=== PATIENT | female | born 1950 | race African-American/Black ===

== ENCOUNTER 2021-03-13 13:28 | Observation (INO) ==
[2021-03-13] MEDS ORDERED: methylPREDNISolone 125 MG in 0.9 % Sodium Chloride 100 ML IVPB ONE (13:38)
[2021-03-13] MEDS ORDERED: methylPREDNISolone 125 MG/2 ML VIAL IVP ONE (13:50)
[2021-03-13 14:52] LABS: Basophils # 0.1 K/mcL (0.0-0.2); Basophils % 0.5 %; Eosinophils # 0.2 K/mcL (0.0-0.6); Eosinophils % 1.8 %; Hematocrit 41.4 % (35.3-44.9); Immature Granulocytes % 0.6 % (0-4); Lymphocytes # 2.2 K/mcL (0.6-4.6); Lymphocytes % 23.5 %; Mean Corpuscular HGB Conc 31.4 g/dL (31.6-35.5); Mean Corpuscular Hemoglobin 28.4 pg (28.0-33.3); Mean Corpuscular Volume 90.4 fL (83.0-100.0); Mean Platelet Volume 9.5 fL (9.4-12.4); Monocytes # 0.8 K/mcL (0.0-1.3); Monocytes % 8.1 %; Neutrophils # 6.1 K/mcL (1.6-8.9); Platelet Count 344 K/mcL (140-400); Red Blood Count 4.58 M/mcL (3.82-4.97); Red Cell Distribution Width 14.7 % (11.5-14.5); Segmented Neutrophils % 65.5 %; White Blood Count 9.3 K/mcL (4.3-11.1)
[2021-03-13 15:06] LABS: BUN/Creatinine Ratio 22 (6-26); Blood Urea Nitrogen 14 mg/dL (8-23); Calcium 9.4 mg/dL (8.6-10.3); Carbon Dioxide 28 mEq/L (23-29); Chloride 100 mEq/L (98-107); Glucose 89 mg/dL (70-105); Osmolality,Calculated 282 (280-300); Potassium 3.4 mEq/L (3.5-5.1); Sodium 136 mEq/L (136-145); eGFR For African Americans > 60 (> 60); eGFR For Non-African Americans > 60 (> 60)
[2021-03-13] MEDS ORDERED: Ondansetron 4 MG/2 ML VIAL IVP PRN (15:31)
[2021-03-13] MEDS ORDERED: EPINEPHrine 1 MG/ML VIAL IM ONE (15:32)
[2021-03-13] MEDS: *HR* Heparin 5,000 UNIT/ML VIAL SQ SCH (18:27)
[2021-03-14] MEDS: *HR* Heparin 5,000 UNIT/ML VIAL SQ SCH (05:45)
[2021-03-14 07:10] VITALS: BP 134/83; PULSE 78; TEMP 97.8; O2SAT 96
== END 2021-03-14 10:30 | disposition home or self-care (01) ==
LOC: EMEROOARM 13:28 → 3BNU 13:28 → SUATTDRO 15:33 → 3BNU 17:59
PROVIDERS: ADMIT Internal Medicine; ATTEND Registered Nurse

== ENCOUNTER 2022-02-23 10:45 | Observation (INO) ==
[2022-02-23] MEDS ORDERED: Famotidine 20 MG/2 ML VIAL IVP ONE (11:22)
[2022-02-23] MEDS ORDERED: Oxymetazoline Nasal SPRAY BOTTLE 15ML NS ONE (11:30)
[2022-02-23] MEDS ORDERED: Tetracaine/Benzocaine/Butamben 1 SPRAY AEROSOL MM ONE (11:30)
[2022-02-23] MEDS ORDERED: Ondansetron 4 MG/2 ML VIAL IVP ONE (11:49)
[2022-02-23 13:11] LABS: Basophils # 0.1 K/mcL (0.0-0.2); Basophils % 0.7 %; Eosinophils # 0.2 K/mcL (0.0-0.6); Eosinophils % 3.4 %; Hematocrit 40.9 % (35.3-44.9); Hemoglobin 13.5 g/dL (11.5-15.4); Immature Granulocytes % 0.3 % (0-4); Lymphocytes # 1.6 K/mcL (0.6-4.6); Lymphocytes % 21.9 %; Mean Corpuscular Hemoglobin 29.2 pg (28.0-33.3); Mean Corpuscular Volume 88.3 fL (83.0-100.0); Mean Platelet Volume 10.4 fL (9.4-12.4); Monocytes # 0.5 K/mcL (0.0-1.3); Monocytes % 7.2 %; Neutrophils # 4.7 K/mcL (1.6-8.9); Platelet Count 313 K/mcL (140-400); Red Blood Count 4.63 M/mcL (3.82-4.97); Red Cell Distribution Width 13.3 % (11.5-14.5); Segmented Neutrophils % 66.5 %; White Blood Count 7.1 K/mcL (4.3-11.1)
[2022-02-23 13:14] LABS: VBG HCO3 27 mEq/L (21-27); VBG PCO2 48 mmHg (41-51); VBG PH 7.37 pH Units (7.32-7.42); VBG PO2 92 mmHg (25-50)
[2022-02-23 13:43] LABS: BUN/Creatinine Ratio 28 (6-26); Blood Urea Nitrogen 19 mg/dL (8-23); Calcium 9.6 mg/dL (8.6-10.3); Carbon Dioxide 24 mEq/L (23-29); Chloride 101 mEq/L (98-107); Glucose 99 mg/dL (70-105); Osmolality,Calculated 282 (280-300); Potassium 4.2 mEq/L (3.5-5.1); Sodium 135 mEq/L (136-145)
[2022-02-23 13:46] LABS: Troponin I < 0.03 ng/mL (< 0.04)
[2022-02-23] MEDS ORDERED: Iopamidol - 370 500 ML MLS IVP ONE ×2 (14:30→17:32)
[2022-02-23] MEDS ORDERED: Naloxone 0.4 MG/ML INJ IVP PRN (16:59)
[2022-02-23] MEDS: *HR* Heparin 5,000 UNIT/ML VIAL SQ SCH (20:35)
[2022-02-23] MEDS: carvediloL 25 MG TABLET PO SCH (20:44)
[2022-02-24] MEDS: Acetaminophen 325 MG TABLET PO PRN ×2 (00:16→07:45)
[2022-02-24] MEDS: *HR* Heparin 5,000 UNIT/ML VIAL SQ SCH (05:59)
[2022-02-24 06:45] VITALS: BP 146/79; PULSE 79; TEMP 98.2
[2022-02-24] MEDS: carvediloL 25 MG TABLET PO SCH (07:41)
[2022-02-24] MEDS ORDERED: Loratadine 10 MG TABLET PO SCH (09:00)
[2022-02-24] MEDS ORDERED: FLUoxetine 20 MG CAPSULE PO SCH (09:00)
[2022-02-24] MEDS ORDERED: hydroCHLOROthiazide 25 MG TABLET PO SCH (09:00)
[2022-02-24] MEDS ORDERED: amLODIPine 5 MG TABLET PO SCH (09:00)
[2022-02-24 10:19] VITALS: O2SAT 94
== END 2022-02-24 12:15 | disposition home or self-care (01) ==
LOC: 3NENU 10:45 → EMEROOARM 10:45 → SUATTDRO 17:41 → 3NENU 18:19
PROVIDERS: ADMIT Internal Medicine; ATTEND Internal Medicine